=== PATIENT | male | born 1935 | race Caucasian/White ===

== ENCOUNTER 2018-11-13 09:12 | Emergency (ER) | payer OTHER, BC ==
[~2018-11-13] VITALS: Ht 188 cm; Wt 83.0 kg
[~2018-11-13 09:12] MED LIST: ASPI-1155 PO; B-12; COU; FOLI0.4T2 PO; LEVO175T2 PO; SIMV10TA6 PO; [UNRECOGNIZED DRUG - OTHER]
[2018-11-13 09:19] VITALS: BP_SYST 153
[2018-11-13] MEDS ORDERED: BACITRACIN 1 GM OINT TP ONE (09:30)
[2018-11-13] MEDS ORDERED: DIPH-TET-PERTUS Vaccine 0.5 ML VIAL (ADACEL) IM ONE (09:30)
[2018-11-13] MEDS ORDERED: LIDOCAINE 1% 10 MG/ML, 20 ML MDV IJ ONE (09:30)
[2018-11-13 10:40] VITALS: BP_SYST 134
== END 2018-11-13 09:40 | disposition home or self-care (01) ==
LOC: SED 09:12
DX: S63.501A Unspecified sprain of right wrist, initial encounter (principal); S60.512A Abrasion of left hand, initial encounter; S60.511A Abrasion of right hand, initial encounter; S09.90XA Unspecified injury of head, initial encounter; I10 Essential (primary) hypertension; Z95.0 Presence of cardiac pacemaker; Z88.2 Allergy status to sulfonamides; Z79.82 Long term (current) use of aspirin; Z79.899 Other long term (current) drug therapy; W18.09XA Striking against other object with subsequent fall, initial encounter; Y93.89 Activity, other specified; Y92.89 Other specified places as the place of occurrence of the external cause; Y99.8 Other external cause status
CPT/HCPCS: 70450-TC; 90715; 99284